=== PATIENT | female | born 1980 | race Asian ===

== ENCOUNTER 2017-10-22 07:30 | Outpatient (RCR) | payer OTHER | END 2018-01-01 07:16 | disposition home or self-care (01) | LOC: WSPT 07:30 | DX: M25.511 Pain in right shoulder (principal) ==

== ENCOUNTER → 2019-02-15 | Outpatient (CLI) | payer OTHER | LOC: COL.RAD 08:15 | DX: R51 Headache (principal); R94.6 Abnormal results of thyroid function studies | CPT/HCPCS: A9585 ==

== ENCOUNTER → 2021-07-24 | Outpatient (CLI) | payer OTHER | LOC: MC.RAD 07-19 10:15 | DX: Z12.31 Encounter for screening mammogram for malignant neoplasm of breast (principal) ==

== ENCOUNTER 2021-09-24 13:57 | Emergency (ER) | payer OTHER ==
[~2021-09-24] VITALS: Ht 170.2 cm; Wt 63.6 kg
[2021-09-24 14:00] VITALS: TEMP 98.1
[2021-09-24 15:53] LABS: BASO % 0.3 % (0.0-2.0); EOS # 0.1 K/mm3 (0.0-0.7); EOS % 1.5 % (0.0-4.0); GRAN # 5.1 K/mm3 (1.4-6.5); GRAN % 74.1 % (42.2-75.2); HEMATOCRIT 39.2 % (37.0-47.0); LYMPH # 1.1 K/mm3 (1.2-3.4); LYMPH % 16.1 % (20.0-51.0); MEAN CELL VOLUME 86 fl (80.0-100.0); MEAN CORPUSCULAR HEMOGLOBIN 28 pg (27-31); MEAN CORPUSCULAR HGB CONC 33 g/dl (33.0-37.0); MEAN PLATELET VOLUME 9.3 fl (7.4-10.4); MONO # 0.5 K/mm3 (0.1-0.6); MONO % 7.9 % (1.7-9.3); PLATELET COUNT 240 K/mm3 (130-400); RED BLOOD COUNT 4.57 M/mm3 (4.10-5.30); REDCELL DISTRIBUTION WIDTH-CV 13.1 % (11.5-14.5)
[2021-09-24 16:19] LABS: ALANINE AMINOTRANSFERASE 12 U/L (0-55); ALBUMIN 3.9 gm/dL (3.5-5.0); ALKALINE PHOSPHATASE 70 U/L (40-150); ANION GAP 10 mmol/L (7-16); AST,SGOT 16 U/L (5-34); BILIRUBIN,TOTAL 0.5 mg/dL (0.2-1.2); BLOOD UREA NITROGEN 13 mg/dL (7-19); CALCIUM 9.1 mg/dL (8.4-10.2); CARBON DIOXIDE 26 mmol/L (22-29); CHLORIDE 106 mmol/L (98-107); CREATININE, serum 0.77 mg/dL (0.57-1.11); GLUCOSE 111 mg/dL (70-99); LIPASE 24 U/L (8-78); MAGNESIUM 2.1 mg/dL (1.6-2.6); PHOSPHOROUS 2.7 mg/dL (2.3-4.7); POTASSIUM 3.3 mmol/L (3.5-4.5); SODIUM 142 mmol/L (136-145); TOTAL PROTEIN 7.5 gm/dL (6.2-8.1)
[2021-09-24 16:26] LABS: TROPONIN-I < 0.010 ng/mL (0.00-0.033)
[2021-09-24 19:43] VITALS: BP 102/69; PULSE 69
== END 2021-09-24 19:59 | disposition home or self-care (01) ==
LOC: COL.ER 13:57
PROVIDERS: Emergency Medicine
DX: R00.2 Palpitations (principal); R07.89 Other chest pain; E87.6 Hypokalemia; R79.1 Abnormal coagulation profile
CPT/HCPCS: J1885; Q9967

== ENCOUNTER 2023-04-30 14:40 | Emergency (ER) | payer OTHER ==
[~2023-04-30] VITALS: Ht 170.2 cm; Wt 63.6 kg
[2023-04-30 14:45] VITALS: TEMP 98.1
[2023-04-30] MEDS ORDERED: AMOXICILLIN 8751 TAB PO (15:25)
[2023-04-30 15:59] VITALS: BP 102/69; PULSE 62
[2023-05-03] MEDS ORDERED: CREON 60000 U-11 ECC PO (08:15)
[2023-05-03] MEDS ORDERED: ZYRTEC 10MG10 MG PO (08:16)
[2023-05-03] MEDS ORDERED: FERROUS SU325 MG/TAB PO (08:17)
[2023-05-03] MEDS ORDERED: VITAMIN D31000 I1 PO (08:18)
== END 2023-04-30 16:00 | disposition home or self-care (01) ==
LOC: COL.ER 14:40
DX: S71.152A Open bite, left thigh, initial encounter (principal); Z29.14 Encounter for prophylactic rabies immune globulin; W54.0XXA Bitten by dog, initial encounter

== ENCOUNTER 2023-08-01 05:45 | Day surgery (SDC) | payer OTHER ==
[~2023-08-01] VITALS: Ht 170.2 cm; Wt 66.3 kg
[~2023-08-01 05:45] MED LIST: AMOXICILLIN 8751 TAB PO; CREON 60000 U-11 ECC PO; FERROUS SU325 MG/TAB PO; LR 1,000 ML IV SCH; Ondansetron 4 MG/2 ML VIAL IV PRN; VITAMIN D31000 I1 PO; ZYRTEC 10MG10 MG PO
[2023-08-01 05:50] VITALS: BP 102/77; PULSE 79; TEMP 97.1
[2023-08-01] MEDS ORDERED: MASON NATURAL2000 IU PO (05:57)
[2023-08-01] MEDS ORDERED: CREON 120000 U-1 ECC PO (05:57)
[2023-08-01] MEDS ORDERED: FERROUS FUMARA324 MG PO (05:58)
--- NOTE | 2023-08-01 06:18 | NUR ---
The patient ambulated back to [place] [facility] independently using a steady gait and appeared to tolerate the activity well. Vital signs obtained. Consent signed. 20G IV started right hand with one stick, LR Infusing without difficulty. Assessment completed. Home medications reconcilled. Warm blankets provided. Call light is within reach. Daughter brought back to be at her bedside. The patient denies any further needs at this time.
[2023-08-01] MEDS ORDERED: Lidocaine PF 2% (20 MG/ML) 5 ML VIAL ONE (07:29)
[2023-08-01 08:10] VITALS: BP 89/75; PULSE 77; TEMP 96.7
--- NOTE | 2023-08-01 08:10 | NUR ---
0810- PATIENT RETURNS TO [facility] [place] [facility] VIA CART. PT AWAKE AND ALERT. RESPIRATIONS UNLABORED. AMBULATED TO RECLINER CHAIR WITH 2:1 SBA. PT DENIES NAUSEA OR ABDOMINAL PAIN. HOOKED UP TO MONITOR AND VS OBTAINED. CALL LIGHT AT SIDE AND DAUGHTER PRESENT. 0822- PATIENT TOLERATING ORANGE JUICE AND MUFFIN WITHOUT NAUSEA OR DIFFICULTY SWALLOWING. 0831- D/C INSTRUCTIONS REVIEWED WITH PATIENT. PT VERBALIZED UNDERSTANDING AND A COPY OF INSTRUCTIONS PROVIDED IN D/C FOLDER. 0842- PATIENT DRESSES SELF. 0850- DR. DE LA O IN ROOM SPEAKING WITH PATIENT. 0855- PATIENT DISCHARGED FROM UNIT VIA W/C TO A PERSONAL VEHICLE. PT LEFT HOSPITAL IN STABLE CONDITION.
[2023-08-01 08:15] VITALS: BP 85/75; PULSE 69
[2023-08-01 08:30] VITALS: BP 97/83; PULSE 66
[2023-08-01 08:45] VITALS: BP 89/55; PULSE 64
== END 2023-08-01 08:55 | disposition home or self-care (01) ==
LOC: SDCO 05:45
DX: K29.80 Duodenitis without bleeding (principal); R19.7 Diarrhea, unspecified; K21.9 Gastro-esophageal reflux disease without esophagitis; K63.89 Other specified diseases of intestine; K86.81 Exocrine pancreatic insufficiency; D50.9 Iron deficiency anemia, unspecified; R13.10 Dysphagia, unspecified; Z79.899 Other long term (current) drug therapy
CPT/HCPCS: J2704; J7120